=== PATIENT | female | born 1960 | race Caucasian/White ===

== ENCOUNTER 2018-10-01 12:15 | Emergency (ER) | payer OTHER ==
[~2018-10-01] VITALS: Ht 160 cm; Wt 79.4 kg
[2018-10-01 12:29] VITALS: BP 134/93
--- NOTE | 2018-10-01 12:45 | NUR ---
FALL FROM 6FT LADDER GRABBING FRUIT FROM TREE---PT STATES SHE WAS ONLY FEW RUNGS UP DENIES KO, NO EMESIS RIGHT WRIST SWELLING +2 RADIAL PULSE <3 SEC CAP REFILL
--- NOTE | 2018-10-01 12:53 | NUR ---
Patient taken to from ED lobby to XRAY via wheelchair.
--- NOTE | 2018-10-01 12:54 | NUR ---
Patient returned from XRAY, transferred to bed 2. RN evaluating patient at bedside.
[2018-10-01] MEDS ORDERED: KETOROLAC 60 MG/2 ML VIAL IM ONE (13:35)
[2018-10-01] MEDS ORDERED: traMADol 50 MG TAB PO ONE (13:35)
[2018-10-01 15:10] VITALS: BP 133/87
--- NOTE | 2018-10-01 15:11 | NUR ---
Patient discharged with v/s stable. Written and verbal after care instructions given and explained. Patient alert, oriented and verbalized understanding of instructions. Carried with to car. All questions addressed prior to discharge. ID band removed. Patient advised to follow up with PMD. Rx of voltaren given. Patient educated on indication of medication including possible reaction and side effects. Opportunity to ask questions provided and answered.
== END 2018-10-01 15:10 | disposition home or self-care (01) ==
LOC: MED 12:15
DX: S69.91XA Unspecified injury of right wrist, hand and finger(s), initial encounter (principal); G89.4 Chronic pain syndrome; F32.9 Major depressive disorder, single episode, unspecified; K21.9 Gastro-esophageal reflux disease without esophagitis; I10 Essential (primary) hypertension; Z76.0 Encounter for issue of repeat prescription; W11.XXXA Fall on and from ladder, initial encounter; Y93.89 Activity, other specified; Y92.89 Other specified places as the place of occurrence of the external cause; Y99.8 Other external cause status
CPT/HCPCS: 29125; 73110; 96372; 99283; J1885